=== PATIENT | female | born 1945 | race Caucasian/White ===

== ENCOUNTER → 2023-05-18 11:21 | Outpatient (REF) | payer MEDICARE, OTHER, SELFPAY | LOC: HWRAD 11:21 | PROVIDERS: ATTENDING PHYSICIAN Internal Medicine | DX: M85.89 Other specified disorders of bone density and structure, multiple sites (principal); I34.1 Nonrheumatic mitral (valve) prolapse; E04.1 Nontoxic single thyroid nodule; E78.5 Hyperlipidemia, unspecified; Z86.012 Personal history of benign carcinoid tumor | CPT/HCPCS: 71046; 77080 ==

== ENCOUNTER → 2023-11-05 10:23 | Outpatient (REF) | payer MEDICARE, OTHER, SELFPAY | LOC: HWWDC 10:23 | PROVIDERS: ATTENDING PHYSICIAN Obstetrics & Gynecology; FAMILY PHYSICIAN Internal Medicine | DX: Z12.31 Encounter for screening mammogram for malignant neoplasm of breast (principal); E04.2 Nontoxic multinodular goiter | CPT/HCPCS: 76536; 77063; 77067 ==

== ENCOUNTER → 2023-11-24 08:18 | Outpatient (REF) | payer MEDICARE, OTHER, SELFPAY ==
[2023-11-24 08:57] VITALS: BP 157/79; BP_SYST 80
== END ==
LOC: RADI 08:18
PROVIDERS: ATTENDING PHYSICIAN Internal Medicine
DX: C73 Malignant neoplasm of thyroid gland (principal)
CPT/HCPCS: 88173; 10005; 10006

== ENCOUNTER 2024-01-11 06:12 | Day surgery (SDC) | payer MEDICARE, OTHER, SELFPAY ==
[2023-12-28 12:36] VITALS: BMI 23.9
[2024-01-11] VITALS (13 sets, daily range): BP systolic 119–145; BP diastolic 52–80; BMI 23.9
[2024-01-11] MEDS: NEURONTIN 300 MG PO (07:11)
[2024-01-11] MEDS: HEPARIN 5000 UNITS SC (07:12)
[2024-01-11] MEDS: TYLENOL 1000 MG PO (07:12)
[2024-01-11] MEDS: NORMOSOL-R/PLASMALYTE-A 1000 IV (07:12)
--- NOTE | 2024-01-11 09:42 | OR.RPT ---
Operative Report
Operative Report
DATE OF OPERATION: January 11, 2024
PREOPERATIVE DIAGNOSIS: �Thyroid Cancer - C73
POSTOPERATIVE DIAGNOSIS: Same
SURGEON: Anibal Sánchez M.D.
OPERATION: �Total thyroidectomy & Right paratracheal level 6 lymph node dissection - 42431
ANESTHESIA: GET
ESTIMATED BLOOD LOSS: 3 cc
DRAINS: None
SPECIMEN: �total thyroid lobe and isthmus and right level paratracheal tissue
FINDINGS: Thyroid tumors
COMPLICATIONS:� None
PROCEDURE:
The patient was taken to the operating room and placed in the usual supine position. After adequate general endotracheal anesthesia was established, the patient�s neck was extended, prepped, and draped in the typical sterile fashion. A 5 cm
transcervical incision was made two fingerbreadths above the sternal notch. The skin incision was made with the #15 blade, which was taken through the skin into the subcutaneous tissue. The underlying platysma muscle was divided, and subplatysmal
flaps were created superiorly to the thyroid cartilage and inferiorly to the sternal notch. Strap muscles were identified and at the midline.
Attention was turned to the patient�s right thyroid lobe. The right thyroid lobe was mobilized medially. During this process, the right middle thyroid vein and inferior thyroid artery were dissected and ligated with Ligasure. Next, the right
superior pole was taken down by dissecting and transecting the superior pole vessels with a Ligasure. The right thyroid lobe was mobilized medially. During this process, the right recurrent laryngeal nerve was identified and preserved throughout its
entire course. The right superior parathyroid gland was identified and preserved.
Attention was turned to the patient�s left thyroid lobe. The left thyroid lobe was mobilized medially. During this process, the left middle thyroid vein and inferior thyroid artery were dissected and ligated with Ligasure. Next, the left superior
pole was taken down by dissecting and transecting the superior pole vessels with a Ligasure. The left thyroid lobe was mobilized medially. During this process, the left recurrent laryngeal nerve was identified and preserved throughout its entire
course. The left superior and inferior parathyroid glands were identified and preserved. The left thyroid lobe with isthmus was resected off the trachea and sent to the pathology department.
At this time, the right level 6 neck dissection was performed. The tissue between the right carotid artery to the trachea into the anterior mediastinum was carefully dissected. The previously identified recurrent laryngeal nerve and parathyroid
glands were preserved. The tissue was removed and sent to the pathology department.
After obtaining adequate hemostasis, the strap muscle was approximated with #3-0 Vicryl in a running fashion, and platysma muscles were reapproximated with #3-0 Vicryl in an interrupted fashion, and the skin was approximated with #4-0 Monocryl in a
running subcuticular fashion. Steri-strips and sterile dressings were placed. The patient tolerated the procedure well. The final instrument, needle, and sponge counts were correct.
[2024-01-11] MEDS: ZOFRAN 4 MG IV (10:01)
[2024-01-11] MEDS: COMPAZINE 5 MG IV (10:42)
== END 2024-01-11 13:12 | disposition home or self-care (01) ==
LOC: SDS 06:12
PROVIDERS: ATTENDING PHYSICIAN Surgery
DX: C73 Malignant neoplasm of thyroid gland (principal); E06.3 Autoimmune thyroiditis; D18.1 Lymphangioma, any site
CPT/HCPCS: 60252; 88304; 88305; 88307; C1776

== ENCOUNTER → 2024-08-28 12:21 | Outpatient (REF) | payer MEDICARE, OTHER, SELFPAY | LOC: HWRAD 12:21 | PROVIDERS: ATTENDING PHYSICIAN Surgery; FAMILY PHYSICIAN Internal Medicine | DX: C73 Malignant neoplasm of thyroid gland (principal) | CPT/HCPCS: 76536 ==

== ENCOUNTER → 2024-11-17 10:46 | Outpatient (REF) | payer MEDICARE, OTHER, SELFPAY | LOC: HWWDC 10:46 | PROVIDERS: ATTENDING PHYSICIAN Internal Medicine; REFERRING PHYSICIAN Obstetrics & Gynecology | DX: Z12.31 Encounter for screening mammogram for malignant neoplasm of breast (principal) | CPT/HCPCS: 77063; 77067 ==

== ENCOUNTER → 2025-03-06 10:57 | Outpatient (REF) | payer MEDICARE, OTHER, SELFPAY | LOC: RAD 10:57 | PROVIDERS: ATTENDING PHYSICIAN Internal Medicine | DX: M25.531 Pain in right wrist (principal) | CPT/HCPCS: 73110 ==

== ENCOUNTER → 2025-03-12 14:18 | Outpatient (REF) | payer MEDICARE, OTHER, SELFPAY | LOC: HWRAD 14:18 | PROVIDERS: ATTENDING PHYSICIAN Surgery; FAMILY PHYSICIAN Internal Medicine | DX: C73 Malignant neoplasm of thyroid gland (principal) | CPT/HCPCS: 76536 ==